=== PATIENT | male | born 1980 | race Caucasian/White ===

== ENCOUNTER 2021-05-17 16:47 | Emergency (ER) | payer BC, SELFPAY ==
--- NOTE | ~2021-05-17 | XR_ITS ---
EXAMINATION: XR chest 2V DATE: 05/17/2021 17:22 INDICATION: Chest pain. TECHNIQUE: Frontal and lateral views of the chest were obtained. COMPARISON: None. FINDINGS: The chest demonstrates clear lungs without pneumonia, pleural effusion, or pneumothorax. Th e heart size is normal. IMPRESSION: 1. No acute cardiopulmonary disease. Reviewed, dictated and finalized at location A. [facility]
[2021-05-17 16:43] VITALS: BP 136/94; PULSE 76; RESP 16; TEMP 36.8; O2SAT 96
--- NOTE | 2021-05-17 16:54 | ECG_ITS ---
Measurements Intervals [place] Rate: 75 P: 38 MT: 171 QRS: -30 QRSD: 104 T: 56 QT: 375 QTc: 421 Interpretive Statements SINUS RHYTHM EARLY PRECORDIAL R/S TRANSITION VOLTAGE CRITERIA FOR LVH MINIMAL Q WAVES- HIGH LATERAL LEADS BASELINE ARTIFACT- I, II, III, AVR, AVL, AVF, V1-V6 BORDERLINE ECG Electronically Signed On 05-18-2021 7:38:56 [facility] by Layo Beck D.O.
[2021-05-17 16:55] VITALS: PULSE 85
--- NOTE | 2021-05-17 16:56 | ED.CHESTPAIN ---
HPI - Chest Pain General Chief Complaint: Chest Pain <Sharad De Leon MD - Last Filed: 05/17/21 18:24> Stated Complaint: CP <Sharad De Leon MD - Last Filed: 05/17/21 18:24> Time Seen by Provider: 05/17/21 16:51 <Sharad De Leon MD - Last Filed: 05/17/21 18:24> Source: patient <Sharad De Leon MD - Last Filed: 05/17/21 18:24> Mode of arrival: EMS <Sharad De Leon MD - Last Filed: 05/17/21 18:24> Limitations: no limitations <Sharad De Leon MD - Last Filed: 05/17/21 18:24> History of Present Illness HPI narrative: 41-year-old with history of hyperlipidemia here with complaints of left-sided chest pain started approximately 3 days ago he states that he had multiple episodes on day 1 as well as only 2 9 yesterday again started this afternoon while he was referring in the soccer game. Denies any shortness of breath, no history of nausea or vomiting. Denies any fever or chills. No history of coronary artery disease. <Sharad De Leon MD - Last Filed: 05/17/21 18:24> MD complaint: chest pain <Sharad De Leon MD - Last Filed: 05/17/21 18:24> Onset (ago): day(s) <Sharad De Leon MD - Last Filed: 05/17/21 18:24> Timing of current episode: episodic (Multiple episodes) and now resolved <Sharad De Leon MD - Last Filed: 05/17/21 18:24> Pain location: left chest <Sharad De Leon MD - Last Filed: 05/17/21 18:24> Pain radiation: none <MD Sneha Franco Last Filed: 05/17/21 18:24> Severity: moderate <MD Sneha Franco Last Filed: 05/17/21 18:24> Quality: aching <Sharad De Leon MD - Last Filed: 05/17/21 18:24> Relieving factors: nothing <MD Sneha Franco Last Filed: 05/17/21 18:24> Exacerbating factors: nothing <Sharda De Leon MD - Last Filed: 05/17/21 18:24> Related Data Allergies/Adverse Reactions: Allergies Allergy/AdvReac Type Severity Reaction Status Date / Time No Known Allergies Allergy Verified 05/17/21 16:51 <Sharad De Leon MD - Last Filed: 05/17/21 18:24> Review of Systems Review of Systems: All systems reviewed & are unremarkable except as noted in HPI and below <Sharad De Leon MD - Last Filed: 05/17/21 18:24> Constitutional: Constitutional: Reports no additional constitutional complaints <Sharad De Leon MD - Last Filed: 05/17/21 18:24> Eyes: Eyes: Reports no additional eye complaints <Sharad De Leon MD - Last Filed: 05/17/21 18:24> ENT: Reports system reviewed and no additional complaints, except as documented <Sharad De Leon MD - Last Filed: 05/17/21 18:24> Cardiovascular: Cardiovascular: Reports no additional cardiovascular complaints <Sharad De Leon MD - Last Filed: 05/17/21 18:24> Gastrointestinal: Gastrointestinal: Reports no additional gastrointestinal complaints <Sharad De Leon MD - Last Filed: 05/17/21 18:24> Musculoskeletal: Musculoskeletal: Reports no additional musculoskeletal complaints <Sharad De Leon MD - Last Filed: 05/17/21 18:24> Integumentary/Breasts: Skin/Breast: Reports system reviewed and no additional complaints, except as docu <Sharad De Leon MD - Last Filed: 05/17/21 18:24> PMFSH Social History Social History: Social History (Updated 05/17/21 @ 17:00 by Sharad De Leon MD) Social History: smokes 1 cigar a month Alcohol intake: current Drinks per week: 3 Living arrangements: with family Gender identity (if verbalized by the patient): Male <Sharad De Leon MD - Last Filed: 05/17/21 18:24> Exam Narrative: GENERAL: Well-appearing, well-nourished, and in no acute distress. HEAD: Normocephalic, atraumatic. EYES: PERRLA and EOMI. NECK: Supple. CHEST: Clear to auscultation. No respiratory distress. HEART: Regular rate and rhythm. No murmur heard. Normal peripheral pulses. ABDOMEN: Soft, nontender, nondistended, normal active bowel sounds. EXTREMITIES: Normal range of motion. No edema. SKIN: Warm, dry, no rash. NEURO: No focal defic
[2021-05-17 17:24] LABS: Basophils Absolute Auto 0.1 K/mm3 (0.0-0.1); Basophils Percent Auto 0.6 % (0.2-1.2); Eosinophils Percent Auto 0.4 % (0-4.4); Hematocrit 46.5 % (42.0-52.0); Hemoglobin 16.5 g/dL (14.0-18.0); Immature Granulocyte Absolute 0.03 K/mm3 (0.00-0.031); Immature Granulocyte Percent A 0.3 % (0-0.5); Lymphocytes Absolute Auto 2.04 K/mm3 (0.9-3.2); Lymphocytes Percent Auto 22.8 % (18.3-44.2); Mean Corpuscular HGB Conc 35.5 g/dl (32-36); Mean Corpuscular Hemoglobin 31.1 pg (26-34); Mean Corpuscular Volume 87.7 fl (80-100); Mean Platelet Volume 8.9 fl (7.4-10.4); Monocytes Absolute Auto 0.9 K/mm3 (0.1-0.6); Monocytes Percent Auto 9.5 % (2.6-8.5); Neutrophils Absolute Auto 5.9 K/mm3 (1.3-6.7); Neutrophils Percent Auto 66.4 % (45.5-73.1); Platelet Count Result 226 k/mm3 (150-375); Red Cell Distribution Width 12.7 % (11.5-14.5); White Blood Count 8.9 K/mm3 (4.5-10.0)
[2021-05-17 17:35] LABS: Prothrombin Time 13.3 Seconds (11.1-14.7)
[2021-05-17 17:36] LABS: Partial Thromboplastin Time 26.2 SECONDS (22.3-36.8)
[2021-05-17 17:38] LABS: Alanine Aminotransferase 51 U/L (4-50); Alkaline Phosphatase 47 U/L (38-126); Anion Gap 9 mmol/L (8-16); Aspartate Amino Transferase 32 U/L (17-59); Bilirubin,Total 0.7 mg/dL (0.2-1.3); Blood Urea Nitrogen 10 mg/dL (9-20); Carbon Dioxide 29 mmol/L (22-30); Chloride 99 mmol/L (98-107); Estimated CRCL calculation 97 ml/min; Estimated Glomerular Filt Rate > 60; Glucose 107 mg/dL (65-110); Lipase 53 U/L (23-300); Potassium 3.6 mmol/L (3.4-5.0); Sodium 137 mmol/L (137-145)
[2021-05-17 17:48] LABS: Troponin I < 0.012 ng/mL (0.000-0.034)
[2021-05-17 19:32] LABS: Troponin I < 0.012 ng/mL (0.000-0.034)
[2021-05-17 19:58] VITALS: BP 134/88; PULSE 82; RESP 18; O2SAT 99
== END 2021-05-17 20:00 | disposition home or self-care (01) ==
PROVIDERS: Family Medicine; Emergency Provider Emergency Medicine
DX: R07.9 Chest pain, unspecified (principal); E78.5 Hyperlipidemia, unspecified
CPT/HCPCS: 36415; 71046; 80053; 83690; 84484; 85025; 85610; 85730; 93005; 99284